=== PATIENT | female | born 1985 | race Asian ===

== ENCOUNTER 2017-08-04 08:56 | Emergency (ER) | payer OTHER ==
[~2017-08-04] VITALS: Ht 165.1 cm; Wt 52.7 kg
[2017-08-04 10:19] VITALS: BP 114/67
== END 2017-08-04 10:19 | disposition home or self-care (01) ==
LOC: ED 08:56
DX: K08.89 Other specified disorders of teeth and supporting structures (principal); R10.13 Epigastric pain